=== PATIENT | female | born 1935 | race Caucasian/White ===

== ENCOUNTER → 2023-11-09 09:36 | Outpatient (REF) | payer MEDICARE, SELFPAY | LOC: WOUND 09:36 | PROVIDERS: ATTENDING PHYSICIAN Physician Assistant Surgical; REFERRING PHYSICIAN Family Medicine | DX: L97.322 Non-pressure chronic ulcer of left ankle with fat layer exposed (principal); L89.626 Pressure-induced deep tissue damage of left heel; E23.2 Diabetes insipidus; I73.9 Peripheral vascular disease, unspecified; G62.9 Polyneuropathy, unspecified | CPT/HCPCS: 11042; 97597; 99213 ==

== ENCOUNTER → 2023-11-26 08:52 | Outpatient (REF) | payer MEDICARE, SELFPAY | LOC: WOUND 08:52 | PROVIDERS: ATTENDING PHYSICIAN Surgery; REFERRING PHYSICIAN Family Medicine | DX: L97.322 Non-pressure chronic ulcer of left ankle with fat layer exposed (principal); L89.626 Pressure-induced deep tissue damage of left heel; E23.2 Diabetes insipidus; I73.9 Peripheral vascular disease, unspecified; G62.9 Polyneuropathy, unspecified; Z95.1 Presence of aortocoronary bypass graft; I25.10 Atherosclerotic heart disease of native coronary artery without angina pectoris; I10 Essential (primary) hypertension; Z95.5 Presence of coronary angioplasty implant and graft | CPT/HCPCS: 11042; 97597 ==

== ENCOUNTER → 2023-12-01 09:31 | Outpatient (REF) | payer MEDICARE, SELFPAY | LOC: WOUND 09:31 | PROVIDERS: ATTENDING PHYSICIAN Surgery; FAMILY PHYSICIAN Family Medicine | DX: L97.322 Non-pressure chronic ulcer of left ankle with fat layer exposed (principal); L89.626 Pressure-induced deep tissue damage of left heel; E23.2 Diabetes insipidus; I73.9 Peripheral vascular disease, unspecified; G62.9 Polyneuropathy, unspecified; I25.10 Atherosclerotic heart disease of native coronary artery without angina pectoris; I10 Essential (primary) hypertension; Z95.5 Presence of coronary angioplasty implant and graft | CPT/HCPCS: 11042; 97597 ==

== ENCOUNTER → 2023-12-15 09:24 | Outpatient (REF) | payer MEDICARE, SELFPAY | LOC: WOUND 09:24 | PROVIDERS: ATTENDING PHYSICIAN Surgery; REFERRING PHYSICIAN Family Medicine | DX: I73.9 Peripheral vascular disease, unspecified (principal); L97.322 Non-pressure chronic ulcer of left ankle with fat layer exposed; L89.626 Pressure-induced deep tissue damage of left heel; E23.2 Diabetes insipidus; G62.9 Polyneuropathy, unspecified; Z95.1 Presence of aortocoronary bypass graft; I25.10 Atherosclerotic heart disease of native coronary artery without angina pectoris; I10 Essential (primary) hypertension; Z95.5 Presence of coronary angioplasty implant and graft | CPT/HCPCS: 11042 ==

== ENCOUNTER → 2023-12-29 09:04 | Outpatient (REF) | payer MEDICARE, SELFPAY | LOC: WOUND 09:04 | PROVIDERS: ATTENDING PHYSICIAN Surgery; REFERRING PHYSICIAN Family Medicine | DX: L89.626 Pressure-induced deep tissue damage of left heel (principal); L97.322 Non-pressure chronic ulcer of left ankle with fat layer exposed; E23.2 Diabetes insipidus; I73.9 Peripheral vascular disease, unspecified; G62.9 Polyneuropathy, unspecified; Z95.1 Presence of aortocoronary bypass graft; I10 Essential (primary) hypertension; Z95.5 Presence of coronary angioplasty implant and graft | CPT/HCPCS: 11042 ==